=== PATIENT | male | born 1975 | race Caucasian/White ===

== ENCOUNTER 2019-08-19 17:40 | Emergency (ER) | payer OTHER ==
[~2019-08-19] VITALS: Ht 172.7 cm; Wt 68.0 kg
[2019-08-19 18:31] LABS: ABSOLUTE NEUTROPHILS 4.4 thou/uL (1.4-8.2); BASOPHILS 0.9 % (0.0-2.0); EOSINOPHILS 0.6 % (0.0-3.0); HEMATOCRIT 46.2 % (42.0-52.0); HEMOGLOBIN 16.1 gm/dL (14.0-18.0); LYMPHOCYTES 20.3 % (24.0-44.0); MCH 31.7 pg (26.0-34.0); MCHC 34.7 g/dL (28.0-37.0); MCV 91.3 fL (80.0-100.0); MONOCYTES 7.5 % (1.0-8.0); POLYS 70.7 % (36.0-66.0); RBC 5.06 mil/uL (4.50-6.00); RDW 12.9 % (10.5-14.5); WBC 6.2 thou/uL (4.0-11.0)
[2019-08-19 18:37] LABS: ANION GAP 6 mmol/L (7-16); BUN 13 mg/dL (7-18); CALCIUM 9.1 mg/dL (8.5-10.1); CHLORIDE 98 mmol/L (98-107); CO2 31 mmol/L (21-32); CREATININE 0.9 mg/dL (0.7-1.3); GLUCOSE 345 mg/dL (74-106); POTASSIUM 3.7 mmol/L (3.5-5.1); SODIUM 135 mmol/L (136-145)
[2019-08-19 18:47] LABS: ALBUMIN 4.1 g/dL (3.4-5.0); SGOT 22 U/L (15-37); SGPT 30 U/L (30-65); TOTAL BILIRUBIN 1.8 mg/dL (0.2-1.0); TOTAL PROTEIN 7.3 g/dL (6.4-8.2); TROPONIN-I <0.06 ng/mL (<0.06)
[2019-08-19 18:53] LABS: PLATELET COUNT 121 thou/uL (150-400)
[2019-08-19] MEDS ORDERED: METFORMIN HCL500 MG PO (19:32)
[2019-08-19] MEDS ORDERED: NORVASC5 MG PO (19:32)
[2019-08-19 19:54] VITALS: BP 151/91
--- NOTE | 2019-08-20 08:56 | EKG ---
[facility] [place] [address] ELECTROCARDIOGRAM REPORT Name: JOE HARVEY Room #: DEP M..#: [id number] Admission: 08/19/19 Attend Phys: Discharge: 08/19/19 Date of : 73 Report #: [id number] THIS REPORT FOR: cc: FAM - No family physician/PCP FAM - No family physician/PCP Tank Washington MD [facility] THIS REPORT FOR: //name// [facility] ED Test Date: 2019-08-19 Test Time: 19:10:21 Pat Name: JOE HARVEY Department: Room: Gender: Building [employer]onents Designer: tracy : 1975 Requested By: Анна Short Order Number: [id number] MD: Tank Washington Measurements Intervals Souris Rate: 92 P: 57 IN: 143 QRS: 230 QRSD: 94 T: 49 QT: 357 QTc: 442 Interpretive Statements Sinus rhythm Markedly posterior QRS axis No previous ECG available for comparison Electronically Signed On 08-20-2019 8:56:25 CDT by Tank Washington [email or web address] <ELECTRONICALLY SIGNED> By: Tank Washington MD, FAC 08/20/19 0856 09 09 Tank Washington MD, [facility] /EPI
== END 2019-08-19 19:55 | disposition home or self-care (01) ==
LOC: ER 17:40
PROVIDERS: Student in an Organized Health Care Education/Training Program
DX: I10 Essential (primary) hypertension (principal); E11.9 Type 2 diabetes mellitus without complications; F17.210 Nicotine dependence, cigarettes, uncomplicated